=== PATIENT | male | born 1940 | race Caucasian/White ===

== ENCOUNTER 2018-11-16 17:51 | Emergency (ER) | payer MEDICARE, BC ==
[~2018-11-16] VITALS: Ht 177.8 cm; Wt 93.2 kg
[2018-11-16 17:57] VITALS: TEMP 97.6
[2018-11-16] MEDS ORDERED: PLAVIX 75MG TAB75 MG PO (18:01)
[2018-11-16] MEDS ORDERED: PRILOSEC 20MG20 MG PO (18:02)
[2018-11-16] MEDS ORDERED: LIPITOR20 MG PO (18:02)
[2018-11-16] MEDS ORDERED: LOPRESSOR 225 MG/TAB PO (18:02)
[2018-11-16] MEDS ORDERED: ASPIRIN 81M81 MG/TA2 PO (18:02)
[2018-11-16] MEDS ORDERED: PERIOSTAT PO (18:07)
[2018-11-16] MEDS ORDERED: VIAGRA 25MG TAB25 MG PO (18:18)
[2018-11-16 18:33] LABS: BASO # 0.1 (0.0-0.2); EOS # 0.2 (0.0-0.7); EOS % 2.5 % (0-4.0); GRAN # 3.9 (1.4-6.5); GRAN % 63.1 % (42.2-75.2); HEMATOCRIT 44.8 % (42.0-52.0); LYMPH # 1.4 (1.2-3.4); LYMPH % 22.6 % (20.0-51.0); MEAN CELL VOLUME 94 fl (80.0-100.0); MEAN CORPUSCULAR HEMOGLOBIN 32 pg (27.0-31.0); MEAN CORPUSCULAR HGB CONC 34 g/dl (33.0-37.0); MEAN PLATELET VOLUME 10.3 fl (7.4-10.4); MONO # 0.6 (0.1-0.6); MONO % 10.1 % (1.7-9.3); PLATELET COUNT 238 K/mm3 (130-400); RED BLOOD COUNT 4.76 M/mm3 (4.20-5.60); REDCELL DISTRIBUTION WIDTH-CV 13.2 % (11.5-14.5)
[2018-11-16 18:37] LABS: PROTHROMBIN TIME 11.3 SECONDS (9.7-12.8)
[2018-11-16 18:44] LABS: ALBUMIN 3.5 gm/dL (3.5-5.0); BILIRUBIN,TOTAL 0.3 mg/dL (0.0-1.0); CALCIUM 8.4 mg/dL (8.4-10.2); CREATININE, serum 1.25 (0.66-1.25); POTASSIUM 3.9 mmol/L (3.4-5.0); TOTAL PROTEIN 6.2 gm/dL (6.4-8.2)
[2018-11-16 19:14] LABS: TROPONIN-I 0.266 ng/mL (0.000-0.035)
[2018-11-16 22:13] VITALS: BP 125/74; PULSE 74
== END 2018-11-16 22:14 | disposition home or self-care (01) ==
LOC: COL.ER 17:51
PROVIDERS: Emergency Medicine
DX: R55 Syncope and collapse (principal); I25.10 Atherosclerotic heart disease of native coronary artery without angina pectoris; I10 Essential (primary) hypertension; E78.5 Hyperlipidemia, unspecified; Z79.02 Long term (current) use of antithrombotics/antiplatelets; Z79.82 Long term (current) use of aspirin; Z95.5 Presence of coronary angioplasty implant and graft
CPT/HCPCS: J2405; J7030